=== PATIENT | male | born 1960 | race Caucasian/White ===

== ENCOUNTER 2017-04-18 09:17 | Emergency (ER) | payer SELFPAY ==
[2017-04-18 09:44] VITALS: RESP 18; TEMP 98.4; O2SAT 100; BMI 21.9
--- NOTE | 2017-04-18 10:45 | ED PDOC ---
HPI: Psych/Substance Abuse Time Seen by Provider: 04/18/17 09:25 Chief Complaint (Nursing): Substance Abuse Chief Complaint (Provider): medical clearance History Per: Patient, Other (police) Suicide/Self Injury Attempted (Context): None Modifying Factor(s): Narcotics Severity: Mild Associated Symptoms: denies: Depression, Paranoia, Suicidal Thoughts Involuntary Hold By: Local Law Enforcement Additional Complaint(s): 56yo male arrives under police custody for medical and psychiatric clearance. States uses heroin, last used yesterday and feeling of withdrawal. Denies vomiting, headache or diarrhea. Denies hallucinations, suicidal thoughts or homicidal thoughts. Past Medical History Reviewed: Historical Data, Nursing Documentation, Vital Signs Vital Signs: Last Vital Signs Temp 98.4 F 04/18/17 09:31 Pulse 100 H 04/18/17 09:31 Resp 18 04/18/17 09:31 BP 143/77 04/18/17 09:31 Pulse Ox 100 04/18/17 09:31 - Medical History PMH: No Chronic Diseases - Family History Family History: States: Unknown Family Hx - Living Arrangements Living Arrangements: Other - Social History Current smoker - smoking cessation education provided: Yes Alcohol: None Drugs: Opiates - Allergies Allergies/Adverse Reactions: Allergies Allergy/AdvReac Type Severity Reaction Status Date / Time No Known Allergies Allergy Verified 04/18/17 09:29 Review of Systems ROS Statement: Except As Marked, All Systems Reviewed And Found Negative Constitutional: Negative for: Fever, Chills Respiratory: Negative for: Cough, Shortness of Breath Gastrointestinal: Negative for: Nausea, Vomiting Genitourinary Male: Negative for: Dysuria, Frequency Musculoskeletal: Negative for: Neck Pain, Shoulder Pain Skin: Negative for: Rash, Lesions Neurological: Negative for: Weakness, Numbness Psych: Positive for: Withdrawal. Negative for: Anxiety, Depression, Psychosis, Suicidal ideation Physical Exam - Reviewed Nursing Documentation Reviewed: Yes Vital Signs Reviewed: Yes - Physical Exam Appears: Positive for: Well, Non-toxic, No Acute Distress Head Exam: Positive for: ATRAUMATIC, NORMAL INSPECTION, NORMOCEPHALIC Skin: Positive for: Normal Color, Warm, DRY Eye Exam: Positive for: EOMI, Normal appearance, PERRL ENT: Positive for: Normal ENT Inspection Neck: Positive for: Normal, Painless ROM Cardiovascular/Chest: Positive for: Regular Rate, Rhythm Respiratory: Positive for: CNT, Normal Breath Sounds Gastrointestinal/Abdominal: Positive for: Bowel Sounds, Soft. Negative for: Tenderness, Guarding Back: Positive for: Normal Inspection Extremity: Positive for: Normal ROM Neurologic/Psych: Positive for: Alert, Oriented. Negative for: Motor/Sensory Deficits - ECG O2 Sat by Pulse Oximetry: 100 Medical Decision Making Medical Decision Making: No signs significant withdrawal or toxidrome in ED. Awake, alert and well appearing. Crisis saw patient per Dr Saeed psychiatrist can be DCd to police custody. Disposition - Clinical Impression Clinical Impression: Drug abuse Counseled Patient/Family Regarding: Studies Performed, Diagnosis - Disposition Referrals: [facility] [Outside] Disposition: Discharged/Transfer to Law Enforcement Disposition Time: 10:48 Condition: STABLE Additional Instructions: Medically and psychiatrically stable for police custody and/or incarceration. Instructions: Narcotic Abuse (ED), Polysubstance Abuse (ED), Opioid Withdrawal (ED) Forms: [employer] (Arabic)
[2017-04-18 11:45] VITALS: BP 128/79; PULSE 89
== END 2017-04-18 11:45 ==
LOC: H.ER 09:17
DX: F11.23 Opioid dependence with withdrawal (principal)

== ENCOUNTER 2018-10-03 03:37 | Emergency (ER) | payer SELFPAY ==
[2018-10-03 03:37] VITALS: BMI 21.9
--- NOTE | 2018-10-03 05:21 | ED PDOC ---
Lower Extremity Pain/Injury Time Seen by Provider: 10/03/18 03:56 Chief Complaint (Nursing): Lower Extremity Problem/Injury Chief Complaint (Provider): Lower Extremity Problem/Injury History Per: Patient History/Exam Limitations: no limitations Onset/Duration Of Symptoms: Persistent Current Symptoms Are (Timing): Still Present Additional Complaint(s): 58 year old undomiciled male with history of peripheral vascular disease and gout presents to the ED for evaluation of bilateral lower extremity swelling ongoing for many months. Patient offers no other complaints associated with symptoms. PMD: none provided Past Medical History Reviewed: Historical Data, Nursing Documentation, Vital Signs Vital Signs: Last Vital Signs Temp 97.5 F L 10/03/18 04:20 Pulse 102 H 10/03/18 04:20 Resp 18 10/03/18 04:20 BP 134/79 10/03/18 04:20 Pulse Ox 98 10/03/18 04:20 - Medical History PMH: Denies: Diabetes, Hepatitis, HIV, HTN, Seizures, Sexually Transmitted Disease Other PMH: peripheral vascular disease, gout - Surgical History Surgical History: No Surg Hx - Family History Family History: States: Unknown Family Hx - Social History Current smoker - smoking cessation education provided: Yes - Home Medications Home Medications: Ambulatory Orders Medication Instructions Recorded Naproxen [Naprosyn] 500 mg PO Q12 #14 tab 10/03/18 - Allergies Allergies/Adverse Reactions: Allergies Allergy/AdvReac Type Severity Reaction Status Date / Time No Known Allergies Allergy Verified 04/18/17 09:29 Review of Systems ROS Statement: Except As Marked, All Systems Reviewed And Found Negative Musculoskeletal: Positive for: Other (bilateral lower extremity swelling) Physical Exam - Reviewed Nursing Documentation Reviewed: Yes Vital Signs Reviewed: Yes - Physical Exam Appears: Positive for: No Acute Distress Head Exam: Positive for: ATRAUMATIC, NORMAL INSPECTION, NORMOCEPHALIC Skin: Positive for: Normal Color, Warm, Dry Eye Exam: Positive for: EOMI, Normal appearance, PERRL Neck: Positive for: Normal, Painless ROM, Supple Cardiovascular/Chest: Positive for: Regular Rate, Rhythm. Negative for: Murmur Respiratory: Positive for: Normal Breath Sounds. Negative for: Respiratory Distress Gastrointestinal/Abdominal: Positive for: Normal Exam, Soft. Negative for: Tenderness Extremity: Positive for: Other (2+ bilateral lower extremity edema; venous sta sis). Negative for: Deformity Neurologic/Psych: Positive for: Alert, Oriented (x 3). Negative for: Motor/Sensory Deficits - ECG O2 Sat by Pulse Oximetry: 98 (RA) Pulse Ox Interpretation: Normal Medical Decision Making Medical Decision Makin:16 Impression: 58 year old male with chronic dependent edema and venous stasis Initial Plan: --Toradol 30 mg IM Scribe Attestation: Documented by Tarah Rollins acting as a scribe for Awais Archuleta MD Provider Scribe Attestation: All medical record entries made by the Scribe were at my direction and personally dictated by me. I have reviewed the chart and agree that the record accurately reflects my personal performance of the history, physical exam, medical decision making, and the department course for this patient. I have also personally directed, reviewed, and agree with the discharge instructions and disposition. Disposition - Clinical Impression Clinical Impression: Edema of both lower legs due to peripheral venous insufficiency - Disposition Disposition: Routine/Home Disposition Time: 06:00 Condition: STABLE Prescriptions: Naproxen [Naprosyn] 500 mg PO Q12 #14 tab Instructions: Dependent Edema (DC) Forms: [employer] (Nigerian)
[2018-10-03 05:51] VITALS: BP 117/81; PULSE 89; RESP 16; TEMP 98.1
[2018-10-03 06:38] VITALS: O2SAT 98
== END 2018-10-03 06:31 | disposition home or self-care (01) ==
LOC: H.ER 03:37
DX: R60.0 Localized edema (principal); I87.2 Venous insufficiency (chronic) (peripheral)
CPT/HCPCS: 96372; 99283; J1885